=== PATIENT | female | born 1940 | race Caucasian/White ===

== ENCOUNTER 2017-01-14 11:24 | Emergency (ER) | payer MEDICARE ==
[2017-01-14 12:39] LABS: ABSOLUTE BASOPHILS # (AUTO) 0.1 10^3/uL (0.0-0.2); ABSOLUTE EOSINOPHILS # (AUTO) 0.1 10^3/uL (0.0-0.6); ABSOLUTE LYMPHOCYTES (AUTO) 1.6 10^3/uL (0.5-4.7); ABSOLUTE MONOCYTES (AUTO) 0.6 10^3/uL (0.1-1.4); ABSOLUTE NEUT (AUTO) 4.5 10^3/uL (1.7-8.2); BASOPHILS % (AUTO) 0.9 % (0-2); EOSINOPHILS % (AUTO) 1.6 % (0-6); HEMATOCRIT 41.3 % (36.0-47.0); HEMOGLOBIN 13.7 g/dL (12.0-15.5); HGB HCT DIFFERENCE -0.2; LYMPHOCYTES % (AUTO) 23.1 % (13-45); MEAN CORPUSCULAR HEMOGLOBIN 30.3 pg (27.0-33.4); MEAN CORPUSCULAR HGB CONC 33.2 g/dL (32.0-36.0); MEAN CORPUSCULAR VOLUME 91 fl (80-97); MONOCYTES % (AUTO) 8.2 % (3-13); RED BLOOD COUNT 4.51 10^6/uL (3.72-5.28); RED CELL DISTRIBUTION WIDTH 13.6 % (11.5-14.0); SEGMENTED NEUTROPHILS % (AUTO) 66.2 % (42-78); WHITE BLOOD COUNT 6.8 10^3/uL (4.0-10.5)
[2017-01-14 12:42] LABS: PARTIAL THROMBOPLASTIN TIME 30.2 SEC (23.5-35.8)
[2017-01-14 12:59] LABS: ALANINE AMINOTRANSFERASE 35 U/L (9-52); ALBUMIN 3.8 g/dL (3.5-5.0); ALKALINE PHOSPHATASE 64 U/L (38-126); ANION GAP 8 (5-19); ASPARTATE AMINO TRANSFERASE 23 U/L (14-36); BILIRUBIN,DIRECT 0.2 mg/dL (0.0-0.4); BILIRUBIN,TOTAL 0.3 mg/dL (0.2-1.3); BLOOD UREA NITROGEN 15 mg/dL (7-20); CALCIUM 9.4 mg/dL (8.4-10.2); CARBON DIOXIDE 29 mmol/L (22-30); CHLORIDE 104 mmol/L (98-107); CREATINE KINASE 53 U/L (30-135); CREATININE RESULT 0.79 mg/dL (0.52-1.25); GLUCOSE 122 mg/dL (75-110); POTASSIUM 5.2 mmol/L (3.6-5.0); SODIUM 141.1 mmol/L (137-145); TOTAL PROTEIN 7.1 g/dL (6.3-8.2)
[2017-01-14 13:11] LABS: CREATINE KINASE MB 1.27 ng/mL (<4.55)
[2017-01-14 13:16] LABS: TROPONIN I < 0.012 ng/mL
--- NOTE | 2017-01-14 13:21 | RADIOLOGY REPORT (SQ) ---
EXAM DESCRIPTION: CT HEAD WITHOUT COMPLETED DATE/TIME: 01/14/2017 1:06 pm REASON FOR STUDY: bed 5 sroke alert COMPARISON: None. TECHNIQUE: Axial images acquired through the brain without intravenous contrast. Images reviewed wi th bone, brain and subdural windows. Images stored on PACS. All CT scanners at this facility use dose modulation, iterative reconstruction, and/or weight based d osing when appropriate to reduce radiation dose to as low as reasonably achievable (ALARA). [facility]: Dose Right [facility]: CareDose [facility]: Dose Right [facility]: Teradose 4D [facility]: Provigent RADIATION DOSE: 64.61 mGy. LIMITATIONS: None. FINDINGS: VENTRICLES: Normal size and contour. CEREBRUM: No masses. No hemorrhage. No midline shift. Normal moran/white matter differentiation. N o evidence for acute infarction. CEREBELLUM: No masses. No hemorrhage. No alteration of density. No evidence for acute infarction. EXTRAAXIAL SPACES: No fluid collections. No masses. ORBITS AND GLOBE: No intra- or extraconal masses. Normal contour of globe without masses. CALVARIUM: No fracture. PARANASAL SINUSES: No fluid or mucosal thickening. SOFT TISSUES: No mass or hematoma. OTHER: No other significant finding. IMPRESSION: NORMAL BRAIN CT WITHOUT CONTRAST. COMMENT: Pertinent positive or negative findings of the imaging study reported as a CRITICAL EXAM t o ROSANNA STEWARD DO at13:14 on 01/14/2017. Category of Critical Exam: Stroke alert TECHNICAL DOCUMENTATION: JOB ID: [id number] Quality ID # [id number]: Final reports with documentation of one or more dose reduction techniques (e.g., Au tomated exposure control, adjustment of the mA and/or kV according to patient size, use of iterative reconstruction technique) 2010 [employer]- All Rights Reserved
--- NOTE | 2017-01-14 13:47 | RADIOLOGY REPORT (SQ) ---
EXAM DESCRIPTION: CHEST SINGLE VIEW COMPLETED DATE/TIME: 01/14/2017 12:52 pm REASON FOR STUDY: bed 5 sroke alert COMPARISON: None. EXAM PARAMETERS: NUMBER OF VIEWS: One view. TECHNIQUE: Single frontal radiographic view of the chest acquired. RADIATION DOSE: NA LIMITATIONS: None. FINDINGS: LUNGS AND PLEURA: Bandlike scarring or atelectasis at both bases. No fluffy alveolar infi ltrates worrisome for pulmonary edema or pneumonia. No pleural effusion. No pneumothorax. MEDIASTINUM AND HILAR STRUCTURES: No masses. Contour normal. HEART AND VASCULAR STRUCTURES: Moderate cardiomegaly BONES: No acute findings. HARDWARE: Old right humeral head tacks post rotator cuff repair OTHER: No other significant finding. IMPRESSION: Bibasilar atelectasis or scarring TECHNICAL DOCUMENTATION: JOB ID: [id number]
--- NOTE | 2017-01-14 18:04 | RADIOLOGY REPORT (SQ) ---
EXAM DESCRIPTION: MRI HEAD WITHOUT COMPLETED DATE/TIME: 01/14/2017 5:41 pm REASON FOR STUDY: left side facial droop eval stroke COMPARISON: Brain CT scan dated 01/14/2017 TECHNIQUE: Multiplanar imaging includes non-contrasted T1, T2, FLAIR, and Diffusion with ADC map seq uences. Images stored on PACS. LIMITATIONS: None. FINDINGS: ANATOMY: No anomalies. Normal vascular flow voids. Pituitary fossa normal. CSF SPACES: Normal in size and contour. No hemorrhage. CEREBRUM: A single high signal intensity lesion is identified in the white matter on FLAIR imaging wi th distribution suggesting chronic micro-vascular ischemic change. Sulci and gyri normal in size and contour. No evidence of hemorrhage, mass or extraaxial fluid collection. POSTERIOR FOSSA: No signal alteration. No hemorrhage. No edema, masses or mass effect. Internal casper tory canals, cerebello-pontine angles, mastoids normal. DIFFUSION: Negative for acute or sub-acute infarction. ORBITS: No masses. Globes normal. PARANASAL SINUSES: No fluid levels. Mucosa normal. OTHER: No other significant finding. IMPRESSION: MINIMAL MICROVASCULAR ISCHEMIC CHANGE. OTHERWISE NORMAL STUDY. TECHNICAL DOCUMENTATION: JOB ID: [id number] [employer]- All Rights Reserved
[2017-01-14] MEDS ORDERED: VALACYCLOVIR HCL 500 MG TABLET PO ONE (18:19)
[2017-01-14] MEDS ORDERED: PREDNISONE 20 MG TABLET PO ONE (18:19)
--- NOTE | 2017-01-14 18:20 | ER Document Report ---
ED General - General Chief Complaint: Numbness of Face Stated Complaint: POSSIBLE STROKE Time Seen by Provider: 01/14/17 11:30 - HPI Patient complains to provider of: Numbness to the left side of face Notes: Patient is coming in for evaluation of numbness to the left side of the face. Numbness started on Friday has been ongoing for approximately 48 hours patient noticed this morning possible facial droop patient also states having sharp shooting pain in the right side of her face therefore came into the ER for further evaluation patient is visiting from [place] does have a history of TIAs. Patient denies any fever chills nausea vomiting denies any trauma to that side of her face. - Related Data Allergies/Adverse Reactions: Sulfa (Sulfonamide Antibiotics) Allergy (Verified 01/14/17 11:51) Past Medical History - Social History Smoking Status: Never Smoker Chew tobacco use (# tins/day): No Frequency of alcohol use: None Drug Abuse: None Family History: Reviewed & Not Pertinent - Past Medical History Cardiac Medical History: Reports: Hx Hypertension Endocrine Medical History: Reports: Hx Diabetes Mellitus Type 2 - Immunizations Hx Diphtheria, Pertussis, Tetanus Vaccination: Yes Review of Systems - Review of Systems Constitutional: No symptoms reported EENT: No symptoms reported Cardiovascular: No symptoms reported Respiratory: No symptoms reported Gastrointestinal: No symptoms reported Genitourinary: No symptoms reported Female Genitourinary: No symptoms reported Musculoskeletal: Other - Numbness and tingling to the left side of face Skin: No symptoms reported Hematologic/Lymphatic: No symptoms reported Neurological/Psychological: No symptoms reported Physical Exam - Vital signs Vitals: Pulse Resp BP Pulse Ox 63 20 154/74 H 97 01/14/17 11:36 01/14/17 11:36 01/14/17 11:36 01/14/17 11:36 Interpretation: Normal - General General appearance: Appears well, Alert - HEENT Head: Normocephalic, Atraumatic Eyes: Normal Pupils: PERRL - Respiratory Respiratory status: No respiratory distress Chest status: Nontender Breath sounds: Normal Chest palpation: Normal - Cardiovascular Rhythm: Regular Heart sounds: Normal auscultation Murmur: No - Abdominal Inspection: Normal Distension: No distension Bowel sounds: Normal Tenderness: Nontender Organomegaly: No organomegaly - Back Back: Normal, Nontender - Extremities General upper extremity: Normal inspection, Nontender, Normal color, Normal ROM , Normal temperature General lower extremity: Normal inspection, Nontender, Normal color, Normal ROM , Normal temperature, Normal weight bearing. No: Federico's sign - Neurological Neuro grossly intact: Yes Cognition: Normal Orientation: AAOx4 Lopez Coma Scale Eye Opening: Spontaneous Lopez Coma Scale Verbal: Oriented Lennox Coma Scale Motor: Obeys Commands Lennox Coma Scale Total: 15 Speech: Normal Cranial nerves: Other - Patient does have an asymmetrical smile on the left with drooping on the left. Patient also has tearing of the left eye when asked to close her eyes tight patient does not close as much on the left of the dome of the right patient eyebrow on the left with a high as the right but does raise there is no flattening and facial fissures on the left. 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 A MRI was performed showing no signs of acute stroke. We will treat the patient for Maldonado' s palsy encouraged patient to follow-up with primary care physician. Patient will be discharged with steroids and antivirals. - Vital Signs Vital signs: Temp Pulse Resp BP Pulse Ox 98.6 F 74 16 147/60 H 99 01/14/17 15:45 01/14/17 14:44 01/14/17 14:44 01/14/17 14:44 01/14/17 14:44 - Laboratory Result Diagrams: 01/14/17 12:20 01/14/17 12:20 Laboratory results interpreted by me: 01/14/17 12:20 Potassium 5.2 H Glucose 122 H Discharge - Discharge Clinical Impression: Maldonado palsy Condition: Good Disposition: HOME, SELF-CARE Instructions: Maldonado's Palsy ([facility]), Steroid Medication Additional Instructions: Your MRI today does not show any signs of a stroke. I am concerned she may be developing Maldonado's palsy also he may be developing shingles or zoster infection. Most the time this is related to a viral infection. Treatment for both includes steroids and antivirals. I would highly recommend she follow-up with her primary care physician when she returned back to your home state. Return to the ER if symptoms worsen. We also recommend that with your history of TIAs in the past to take a baby aspirin once a day. You may take Tylenol and Motrin (advil) for your pain. Prescriptions: Prednisone [Deltasone 20 mg Tablet] 60 mg PO DAILY #24 tablet Valacyclovir HCl [Valacyclovir] 1,000 mg PO TID 10 Days
[2017-01-14 19:11] VITALS: BP 143/78
--- NOTE | 2017-01-15 00:23 | EKG REPORT ---
SEVERITY:- ABNORMAL ECG - SINUS RHYTHM MULTIPLE ATRIAL PREMATURE COMPLEXES BORDERLINE T ABNORMALITIES, INFERIOR LEADS : Confirmed by: Lowell Tejeda 15-Jan-2017 00:23:25
== END 2017-01-14 19:13 | disposition home or self-care (01) ==
LOC: ER 11:24
DX: G51.0 Bell's palsy (principal); I10 Essential (primary) hypertension; E11.9 Type 2 diabetes mellitus without complications; Z86.73 Personal history of transient ischemic attack (TIA), and cerebral infarction without residual deficits; Z88.2 Allergy status to sulfonamides
CPT/HCPCS: 93005; 99285; 36415; 82553; 82550; 85025; 85610; 85730; 80053; 84484; 70551; 71010; 70450; 93010; A9270 ×2; J7512